=== PATIENT | male | born 1960 | race Caucasian/White ===

== ENCOUNTER 2018-10-13 12:07 | Day surgery (SDC) | payer MEDICAID, OTHER ==
[~2018-10-13] VITALS: Ht 195.6 cm; Wt 96.3 kg
[~2018-10-13 12:07] MED LIST: CYCL10TA7 PO; HYDR-3498 PO; NAPR-985 PO
[2018-10-13 12:41] VITALS: Ht 195.6 cm; Wt 96.3 kg
[2018-10-13] MEDS ORDERED: SIMVASTATIN (12:47)
[2018-10-13] MEDS ORDERED: AMLODIPINE (12:47)
[2018-10-13] MEDS ORDERED: BENAZEPRIL (12:47)
[2018-10-13 13:30] VITALS: BP 113/73; PULSE 78; RESP 18
--- NOTE | 2018-10-13 13:54 | PREAC ---
Date/Time of Note Date/Time of Note DATE: 10/13/18 TIME: 13:53 Anesthesia Eval and Record Evaluation Time Pre-Procedure Interview DATE: 10/13/18 TIME: 13:53 Age 58 Sex male NPO: 8 hrs Preoperative diagnosis screening Planned procedure colonoscopy Past Medical History Past Medical History: Includes Cardio: HTN, Dyslipidemia Pulm: Other (smoker) Surgery & Anesthesia Issues No known issue Meds Anticoagulation: No Beta Frantz within 24 hr: No Reason Beta Frantz not given: Pt. not on B-Frantz Reported Medications [Simvastatin] No Conflict Check 10/13/18 [Benazepril] No Conflict Check 10/13/18 [Amlodipine] No Conflict Check 10/13/18 Discontinued Scripts Cyclobenzaprine Hcl* (Cyclobenzaprine Hcl*) 10 Mg Tablet, 10 MG PO TID for MUSCLE SPASMS, #30 TAB Prov:MADELEINE GARCÍA DO 04/21/15 Hydrocodone Bit-Acetaminophen* (Junction*) 5-325 Mg Tab, 1 TAB PO Q6 PRN for PAIN, #20 TAB Prov:MADELEINE GARCÍA DO 04/21/15 Naproxen* (Naprosyn*) 500 Mg Tablet, 500 MG PO BID PRN for PAIN AND/OR INFLAMMATION, #30 TAB Prov:MADELEINE GARCÍA DO 04/21/15 Meds reviewed: Yes Allergies Coded Allergies: No Known Allergy (Unverified , 10/13/18) Allergies Reviewed: Yes Labs/Studies Labs Reviewed: Reviewed by anesthesiologist test: N/A Studies: ECG (n/a), CXR (n/a) Pre-procedure Exam Last vitals Vital Signs Date Temp Pulse Resp B/P (MAP) Pulse Ox O2 O2 Flow FiO2 Time Delivery Rate 10/13/18 97.6 78 18 113/73 98 Room Air 13:30 (86) Airway: Adequate mouth opening Mallampati: Mallampati I Teeth: Normal Lung: Normal Heart: Normal ASA Physical Status ASA physical status: 2 Emergency: None Planned Anesthetic General/MAC: MAC Planned Pain Management Parenteral pain med Pre-operative Attestations Prior to commencing anesthesia and surgery, the patient was re-evaluated, there was verification of: *The patient's identity *The results of appropriate recent lab work and preoperative vital signs *The above evaluation not changing prior to induction *Anesthetic plan, risk benefits, alternative and complications discussed with patient/family; questions answered; patient/family understands, accepts and wishes to proceed. KATELYN GARRETT MD Oct 13, 2018 13:54
[2018-10-13] MEDS ORDERED: PROPOFOL 20 ML ONE (13:55)
[2018-10-13] MEDS ORDERED: FENTAnyl 50 MCG/ML VIAL ONE (13:55)
[2018-10-13] MEDS ORDERED: ONDANSETRON 4 MG INJ IV PRN (14:00)
[2018-10-13 15:18] VITALS: BP 108/78; RESP 15
--- NOTE | 2018-10-13 20:28 | PAC ---
Date/Time of Note Date/Time of Note DATE: 10/13/18 TIME: 20:28 Post-Anesthesia Notes Post-Anesthesia Note Last documented vital signs Vital Signs Date Temp Pulse Resp B/P (MAP) Pulse Ox O2 O2 Flow FiO2 Time Delivery Rate 10/13/18 97.8 74 15 108/78 98 Room Air 15:18 (88) 10/13/18 97.6 78 13:30 Activity: WNL Respiratory function: WNL Cardiovascular function: WNL Mental status: Baseline Pain reasonably controlled: Yes Hydration appropriate: Yes Nausea/Vomiting absent: No KATELYN GARRETT MD Oct 13, 2018 20:28
== END 2018-10-13 17:09 | disposition home or self-care (01) ==
LOC: GIL 12:07
PROVIDERS: ATTEND Internal Medicine Gastroenterology
DX: Z12.11 Encounter for screening for malignant neoplasm of colon (principal); D12.5 Benign neoplasm of sigmoid colon; K57.30 Diverticulosis of large intestine without perforation or abscess without bleeding; D12.3 Benign neoplasm of transverse colon
CPT/HCPCS: 45380; 88305; J3010; Z7610